=== PATIENT | male | born 1980 | race Two or more races ===

== ENCOUNTER 2020-01-16 04:48 | Inpatient (IN) | payer OTHER ==
[~2020-01-16] VITALS: Ht 185.4 cm; Wt 204.2 kg
[2020-01-16] MEDS ORDERED: iohexol 350MG/ML 100ml bottle IV ONE (04:55)
[2020-01-16 06:27] LABS: HEMOGLOBIN 14.5 g/dl (14.0-17.9)
[2020-01-16 06:29] LABS: BASOPHILS # (AUTO) 0.1 X10'3 (0-0.2); BASOPHILS % (AUTO) 0.6 % (0-1); EOSINOPHILS # (AUTO) 0.1 X10'3 (0-0.9); EOSINOPHILS % (AUTO) 0.8 % (0-6); HEMATOCRIT 44.7 % (42.0-52.0); LYMPHOCYTES # (AUTO) 2.1 X10'3 (1.1-4.8); MEAN CORPUSCULAR HEMOGLOBIN 30.5 PG (27.0-31.0); MEAN CORPUSCULAR HGB CONC 32.5 g/dL (33.0-36.5); MEAN PLATELET VOLUME 9.1 FL (7.4-10.4); MONOCYTES % (AUTO) 10.4 % (2-12); NEUTROPHILS % (AUTO) 65.2 % (42-75); PLATELET COUNT 201 X10'3 (140-440); RED BLOOD COUNT 4.76 X10'6 (4.70-6.10); RED CELL DISTRIBUTION WIDTH 13.8 % (11.5-14.5); WHITE BLOOD COUNT 9.1 X10'3 (4.5-11.0)
[2020-01-16 06:52] LABS: ALANINE AMINOTRANSFERASE 55 U/L (12-78); ALBUMIN 3.3 G/DL (3.4-5.0); ALBUMIN/GLOBULIN RATIO 0.8 (1.1-1.5); ALKALINE PHOSPHATASE 75 IU/L (46-116); ANION GAP 2 (8-16); ASPARTATE AMINO TRANSFERASE 28 U/L (10-37); BILIRUBIN,TOTAL 0.4 MG/DL (0.1-1.0); BLOOD UREA NITROGEN 13 MG/DL (7-18); BUN/CREATININE RATIO 12.5 (5.4-32.0); CALCIUM 8.3 MG/DL (8.5-10.1); CHLORIDE 102 MMOL/L (99-107); CREATININE 1.04 MG/DL (0.60-1.10); GLUCOSE 92 MG/DL (70-104); POTASSIUM 3.6 MMOL/L (3.5-5.1); SODIUM 141 MMOL/L (135-145); TOTAL CARBON DIOXIDE 37.3 MMOL/L (24-32); TOTAL PROTEIN 7.4 G/DL (6.4-8.2); eGFR 80 ML/MIN
[2020-01-16] MEDS ORDERED: metoprolol tartrate 1mg/ml inj IV PRN (08:20)
[2020-01-16] MEDS ORDERED: aminophylline 250mg/10ml inj. IV PRN (08:20)
[2020-01-16] MEDS ORDERED: mag hydrox/Alum hydrox/simeth 30ml oral suspension PO PRN (08:20)
[2020-01-16] MEDS ORDERED: acetaminophen 325mg tablet PO PRN ×2 (08:20)
[2020-01-16] MEDS ORDERED: HYDROcodone/acetaminophen 5mg/325mg tablet PO PRN (08:20)
[2020-01-16] MEDS ORDERED: potassium Cl 20 mEq SR tablet PO PRN ×2 (08:20)
[2020-01-16] MEDS ORDERED: ondansetron/PF 4mg/2ml inj IV PRN (08:20)
[2020-01-16] MEDS ORDERED: magnesium 4gm in 100ml NS 100 ML IV PRN (08:20)
[2020-01-16] MEDS ORDERED: metoclopramide 5 mg/ml inj IV PRN (08:20)
[2020-01-16] MEDS ORDERED: nitroGLYCERIN 0.4mg SUBLingual tab SL PRN (08:20)
[2020-01-16] MEDS ORDERED: regadenoson 0.4mg/5ml syringe IV ONE (08:20)
[2020-01-16] MEDS ORDERED: potassium CL 10mEq/100ml bag 100 ML IV PRN ×2 (08:20)
[2020-01-16] MEDS ORDERED: HYDROcodone/acetaminophen 10/325mg tab PO PRN (08:20)
[2020-01-16] MEDS ORDERED: magnesium Cl slow-release 64mg tablet PO PRN (08:20)
[2020-01-16] MEDS ORDERED: magnesium 2GM in 50ml NS 50 ML IV PRN (08:20)
[2020-01-16] MEDS ORDERED: morphine 2 MG/ML inj. syringe IV PRN ×2 (08:20)
[2020-01-16] MEDS ORDERED: magnesium hydroxide 30ml (MOM) UD suspension PO PRN (08:20)
[2020-01-16] MEDS: aspirin 325mg tablet PO SCH (08:30)
[2020-01-16 08:39] LABS: PARTIAL THROMBOPLASTIN TIME 35 SECONDS (22-32)
[2020-01-16 08:50] LABS: HEMOGLOBIN A1C 5.9 % (4.5-6.2)
[2020-01-16 08:59] LABS: PHOSPHORUS 2.9 MG/DL (2.3-4.5)
[2020-01-16] MEDS: furosemide 40mg/4ml inj IV SCH ×2 (09:06→20:12)
[2020-01-16 09:57] LABS: CLARITY,URINE CLEAR (Clear); COLOR,URINE YELLOW (Yellow); GLUCOSE, URINE NEGATIVE (Neg); KETONES,URINE NEGATIVE (Neg); LEUKOCYTE ESTERASE ,URINE NEGATIVE (Neg); NITRITES, URINE NEGATIVE (Neg); OCCULT BLOOD,URINE TRACE-INTACT (Neg); PH,URINE 5.5 (4.8-8.0); PROTEIN,URINE NEGATIVE (Neg); UROBILINOGEN,URINE 0.2 E.U/dL (0.2-1.0)
[2020-01-16 10:01] LABS: URINE AMPHETAMINE SCREEN NEGATIVE (Neg); URINE BARBITUATE SCREEN NEGATIVE (Neg); URINE BENZODIAZEPINES SCREEN NEGATIVE (Neg); URINE CANNABINOID SCREEN POSITIVE (Neg); URINE COCAINE SCREEN NEGATIVE (Neg); URINE METHADONE SCREEN NEGATIVE (Neg); URINE OPIATE SCREEN NEGATIVE (Neg); URINE PHENCYCLIDINE SCREEN NEGATIVE (Neg)
[2020-01-16 10:03] LABS: UA COLLECTION TYPE CLN CATCH MIDSTREAM
[2020-01-16 10:04] LABS: RBC,URINE 0-2 /HPF (0-2)
[2020-01-16 10:05] LABS: BACTERIA,URINE NONE SEEN /HPF (Neg); SQUAMOUS EPITHELIAL CELL,UR MODERATE /LPF (FEW)
[2020-01-16 11:00] VITALS: BP 140/91
[2020-01-16] MEDS ORDERED: heparin 10,000 units/1 ML INJ IV ONE (11:40)
[2020-01-16] MEDS ORDERED: NO HOME MEDS (12:10)
[2020-01-16 12:45] LABS: ABG BASE EXCESS 13.5 mmol/L (-2.0-2.0); ABG HCO3 41.3 mmol/L (22.0-26.0); ABG OXYGEN SATURATION 88.1 % (94-97); ABG PCO2 (T) 63.7 mmHg (35.0-48.0); ABG PO2 (T) 51.9 mmHg (75.0-100.0); ALLEN'S TEST POSITIVE; FCOHb 1.1 % (0.0-3.9); FMetHb 0.2 % (0.0-1.5); TOTAL HEMOGLOBIN 16.2 G/dl (14.0-18.0)
[2020-01-16] MEDS: metoprolol tartrate 25mg tablet PO SCH ×2 (12:50→20:12)
[2020-01-16] MEDS: heparin 25,000 UNIT/250ml bag 250 ML IV SCH ×2 (12:57→20:23)
--- NOTE | 2020-01-16 14:15 | NUR ---
Nutrition consult received for obesity. Pt presented to ED with shortness of breath. Admitted for increased weight due to edema, non-ST elevation MT, possible chf, and respiratory failure with hypoxemia, per MD note. Pending PO intake. Will continue to follow and make recommendations as appropriate. Addendum: 01/16/20 at [address] Amended: Links added.
[2020-01-16 15:00] VITALS: BP 155/87
--- NOTE | 2020-01-16 18:00 | NUR ---
Patient in room PCU 3015. I have received report from Arminda JAMA and had the opportunity to ask questions and assume patient care.
--- NOTE | 2020-01-16 18:18 | NUR ---
Problems reprioritized. Patient report given, questions answered & plan of care reviewed with Analisa and WILEY Magaña.
[2020-01-16 18:30] VITALS: BP 149/71
[2020-01-16] MEDS: K and/or MAG REPLACEMENT MC SCH (20:00)
[2020-01-16] MEDS: heparin 10,000 units/1 ML INJ IV PRN (20:24)
[2020-01-16 22:00] VITALS: BP 144/66
[2020-01-17] VITALS (11 sets, daily range): BP systolic 95–139; BP diastolic 38–85
[2020-01-17 02:50] LABS: HEMATOCRIT 48.8 % (42.0-52.0); HEMOGLOBIN 15.9 g/dl (14.0-17.9); MEAN CORPUSCULAR HEMOGLOBIN 30.3 PG (27.0-31.0); MEAN CORPUSCULAR HGB CONC 32.6 g/dL (33.0-36.5); MEAN CORPUSCULAR VOLUME 92.9 FL (78-98); MEAN PLATELET VOLUME 9.1 FL (7.4-10.4); PLATELET COUNT 200 X10'3 (140-440); RED BLOOD COUNT 5.26 X10'6 (4.70-6.10); RED CELL DISTRIBUTION WIDTH 13.6 % (11.5-14.5); WHITE BLOOD COUNT 9.6 X10'3 (4.5-11.0)
[2020-01-17 03:02] LABS: ALBUMIN 3.4 G/DL (3.4-5.0); ANION GAP 3 (8-16); BLOOD UREA NITROGEN 14 MG/DL (7-18); BUN/CREATININE RATIO 14.4 (5.4-32.0); CHLORIDE 98 MMOL/L (99-107); CHOL/HDL RATIO 2.5 (0.00-4.99); CHOLESTEROL 126 MG/DL (0-200); CREATININE 0.97 MG/DL (0.60-1.10); GLUCOSE 110 MG/DL (70-104); HDL CHOLESTEROL 51 MG/DL (35-60); LDL CHOLESTEROL 65 MG/DL (50-100); MAGNESIUM 2.1 MG/DL (1.5-2.4); POTASSIUM 3.6 MMOL/L (3.5-5.1); SODIUM 142 MMOL/L (135-145); TRIGLYCERIDES 104 MG/DL (20-135); eGFR 87 ML/MIN
[2020-01-17 03:06] LABS: TOTAL CARBON DIOXIDE 41.4 MMOL/L (24-32)
[2020-01-17] MEDS: heparin 25,000 UNIT/250ml bag 250 ML IV SCH ×2 (03:18→06:18)
[2020-01-17] MEDS: heparin 10,000 units/1 ML INJ IV PRN (03:19)
--- NOTE | 2020-01-17 06:17 | NUR ---
Patient in room PCU 3015. I have received report from Jessica JAMA and had the opportunity to ask questions and assume patient care. Patient awake in bed and resting comfortably. Offers no complaints. All immediate needs met at this time.
--- NOTE | 2020-01-17 06:26 | NUR ---
[facility] documentation: I have reviewed and agree with all interventions, assessments performed, medications administered and documented by Archana JAMA.
--- NOTE | 2020-01-17 06:27 | NUR ---
Problems reprioritized. Patient report given, questions answered & plan of care reviewed with Dolores JAMA.
--- NOTE | 2020-01-17 06:33 | NUR ---
Patient in room PCU 3015. I have received report from Jessica JAMA and had the opportunity to ask questions and assume patient care. Patient awake in bed and resting comfortably. All immediate needs met at this time.
[2020-01-17] MEDS ORDERED: regadenoson 0.4mg/5ml syringe IV PRN (08:00)
[2020-01-17] MEDS: K and/or MAG REPLACEMENT MC SCH (08:00)
[2020-01-17] MEDS: aspirin 325mg tablet PO SCH (11:30)
[2020-01-17] MEDS: furosemide 40mg/4ml inj IV SCH (11:30)
[2020-01-17] MEDS: metoprolol tartrate 25mg tablet PO SCH (11:31)
[2020-01-17] MEDS ORDERED: FURO20TA4 PO (12:02)
[2020-01-17] MEDS ORDERED: METO25TA6 PO (12:02)
[2020-01-17] MEDS ORDERED: POTA10TA36 PO (12:02)
--- NOTE | 2020-01-17 14:42 | NUR ---
Paged Dr. Barger: PAGER ID: [phone] MESSAGE: RE: Kenneth Bower [id number]. Patient needs a note to return to work. Can I TOV please? Thank you. Dolores [phone]
--- NOTE | 2020-01-17 15:40 | NUR ---
Patient stable for discharge per MD orders. All discharge instructions reviewed with patient and all questions answered. Patient has new prescriptions sent to [facility]. Patient educated on home blood pressure monitoring. Education provided on sign/symptoms of chest pain and when to return to ER. Education provided on weight loss measures, low sodium diet, healthy eating and exercise. PIV discontinued - cannula intact. Telemetry monitoring discontinued. All patient belongings packed up and sent with patient in private vehicle to home. Patient walked to [employer] by RN.
--- NOTE | 2020-01-17 16:04 | NUR ---
[place] documentation: I have reviewed and agree with all interventions, assessments performed and documented by WILEY Roche. [facility] Medication Administration: For this medication-pass time frame, all medication were reviewed, dispensed, administered and documented per hospital policy by WILEY Roche.
== END 2020-01-17 15:40 | disposition home or self-care (01) | DRG 280 ==
LOC: ER 04:50 → ED HOLD 08:19 → PCU 3S 11:05
PROVIDERS: ADMIT Family Medicine; ATTEND Family Medicine
PROC: B32T1ZZ Computerized Tomography (CT Scan) of Left Pulmonary Artery using Low Osmolar Contrast (ICD-10-PCS; principal; 2020-01-16)
PROC: B3201ZZ Computerized Tomography (CT Scan) of Thoracic Aorta using Low Osmolar Contrast (ICD-10-PCS; 2020-01-16)
PROC: B32S1ZZ Computerized Tomography (CT Scan) of Right Pulmonary Artery using Low Osmolar Contrast (ICD-10-PCS; 2020-01-16)
PROC: 4A02XM4 Measurement of Cardiac Total Activity, External Approach (ICD-10-PCS; 2020-01-17)
PROC: 3E073KZ Introduction of Other Diagnostic Substance into Coronary Artery, Percutaneous Approach (ICD-10-PCS; 2020-01-17)
DX: I21.4 Non-ST elevation (NSTEMI) myocardial infarction (principal); J96.91 Respiratory failure, unspecified with hypoxia; Z68.43 Body mass index [BMI] 50.0-59.9, adult; G47.30 Sleep apnea, unspecified; I50.9 Heart failure, unspecified; E66.01 Morbid (severe) obesity due to excess calories; I16.0 Hypertensive urgency; K76.0 Fatty (change of) liver, not elsewhere classified; F12.90 Cannabis use, unspecified, uncomplicated
CPT/HCPCS: 36415; 36600; 71275; 78452; 80048; 80053; 80061; 80305; 81001; 82803; 83036; 83735; 83880; 84100; 84443; 84484; 85018; 85025; 85027; 85610; 85730; 87081; 87088; 93017; 93306; 93308; 96374; 96375; 99285; A9500; G0378; J1644; J1940; J2785; Q9967